=== PATIENT | female | born 1945 | race Caucasian/White ===

== ENCOUNTER → 2017-04-20 | Outpatient (CLI) | payer BC ==
[~2017-04-20] MED LIST: ADVHFA115 INH; ALBU1AER9 INH; ALPHTAB4 PO; AMLO-110 PO; AMT10 PO; CRF1 PO; CRS10 PO; EPP3 IM; GLGKIT IM; MULT-190 PO; NVLGI SC; OMALIZUMAB; PANT40TA PO; POLYSOL4 OPB; PTDOPS OPB; SYN125 PO; VIACTIVE PO; [UNRECOGNIZED DRUG - OTHER] PO
[2017-04-20 13:28] LABS: ESTIMATED AVERAGE GLUCOSE 180 mg/dl; HA1C FLAG Normal (Normal)
[2017-04-20 13:35] LABS: ALT/SGPT 22 U/L (12-78); AST/SGOT 12 U/L (15-37); BLOOD UREA NITROGEN 16 mg/dl (7-18); BUN/CREATININE RATIO 18.2 (10-20); CALCIUM 9.6 mg/dl (8.5-10.1); CARBON DIOXIDE 29 mmol/L (21-32); CHLORIDE 108 mmol/L (98-107); CHOLESTEROL 148 mg/dl (0-200); GLUCOSE 183 mg/dl (70-99); POTASSIUM 3.9 mmol/L (3.5-5.1); SODIUM 143 mmol/L (136-145)
[2017-04-20 13:43] LABS: ALKALINE PHOSPHATASE 130 U/L (45-117); CHOLESTEROL/HDL RATIO 3.1; HDL CHOLESTEROL 48 mg/dl; TRIGLYCERIDES 107 mg/dl (0-150); VERY LOW DENSITY LIPOPROT CALC 21 mg/dl
[2017-04-20 16:11] LABS: CREATININE RANDOM URINE 99.9 mg/dl
[2017-04-20 16:20] LABS: RATIO 28.3 mcg/mg (0-30.0)
--- NOTE | 2017-04-24 11:41 | CODING QUERY MEDICAL NECESSITY ---
SUPPORTING DIAGNOSIS NEEDED A supporting diagnosis is required for the test/procedure performed on this patient in order for us to be reimbursed by the patient's insurance. Please provide a supporting diagnosis for the following test/procedure listed below next to the test name along with your signature. *If there is no additional diagnosis for this patient that would support the following test/procedure please document that below next to the test/procedure. Test(s)/Procedure(s) that require a supporting diagnosis: * VITAMIN D, 25- HYDROXY DIAGNOSIS: Provider Signature: Date: Thank you Ese Bishop [employer] Information Management Once completed, please kindly fax back to [phone] For questions please call [phone]
== END | disposition home or self-care (01) ==
LOC: C.LAB1850 12:00
PROVIDERS: ATTEND Nurse Practitioner Adult Health
DX: E03.9 Hypothyroidism, unspecified (principal); E78.5 Hyperlipidemia, unspecified; E06.3 Autoimmune thyroiditis; I10 Essential (primary) hypertension; E10.649 Type 1 diabetes mellitus with hypoglycemia without coma; E10.49 Type 1 diabetes mellitus with other diabetic neurological complication; J45.909 Unspecified asthma, uncomplicated; M85.80 Other specified disorders of bone density and structure, unspecified site; Z79.4 Long term (current) use of insulin

== ENCOUNTER → 2017-10-02 | Outpatient (CLI) | payer BC ==
--- NOTE | 2017-10-02 11:11 | DIAGNOSTIC IMAGING REPORT ---
BILATERAL UPPER ARM ULTRASOUND CLINICAL HISTORY: LUMPS ON BOTH TRICEPS COMPARISON STUDY: None. FINDINGS: No sonographic abnormality within the left upper arm at the patient's area of interest. Scanning was performed primarily over the region of the triceps. The muscle fibers appear intact. Within the right upper arm there is a 1.1 x 0.4 cm echogenic linear focus within the triceps muscle. Otherwise, no sonographic abnormalities within the right upper arm. No fluid collections are masses. IMPRESSION: 1. A 1.1 x 0.4 cm echogenic linear focus within the right tricep muscle. This is of uncertain clinical significance and could be due to an area of scarring or calcification/ossification. Follow-up right arm radiograph is recommended for further evaluation. 2. no sonographic abnormality within the left upper arm. Electronically signed by: Charlie Lima M.D. 10/02/2017 11:09 AM Dictated Date/Time: 10/02/2017 11:06 AM
== END | disposition home or self-care (01) ==
LOC: C.ULTR 10:12
PROVIDERS: ATTEND Family Medicine
DX: D17.9 Benign lipomatous neoplasm, unspecified (principal)

== ENCOUNTER → 2017-10-16 | Outpatient (CLI) | payer BC ==
[2017-10-16 13:54] LABS: HEMOGLOBIN A1C 7.8 % (4.5-5.6)
== END ==
LOC: C.LABBC 10:28
PROVIDERS: ATTEND Nurse Practitioner Adult Health
DX: E10.649 Type 1 diabetes mellitus with hypoglycemia without coma (principal)

== ENCOUNTER 2018-02-17 10:48 | Emergency (ER) | payer BC ==
[~2018-02-17] VITALS: Ht 167.6 cm; Wt 70.6 kg
[~2018-02-17 10:48] MED LIST changes: -AMLO-110 PO; +AMLO5TAB3 PO
[2018-02-17 10:49] VITALS: TEMP 36.7; Ht 167.6 cm; Wt 70.6 kg
[2018-02-17] MEDS ORDERED: SODIUM CHLORIDE 0.9% 1000ML 2,000 ML IV STA (11:15)
[2018-02-17 11:39] LABS: BASO % 0.4 %; BASO ABS # 0.03 K/uL (0-0.2); EOS % 0.7 %; EOS ABS # 0.05 K/uL (0-0.5); HEMOGLOBIN 14.3 g/dL (12.0-16.0); IG# 0.02 K/uL (0.00-0.02); LYMPH % 16.4 %; LYMPH ABS # 1.11 K/uL (1.2-3.4); MEAN CELL VOLUME 89.9 fL (80-100); MEAN CORPUSCULAR HEMOGLOBIN 30.6 pg (25-34); MEAN PLATELET VOLUME 11.7 fL (7.4-10.4); MONO % 6.5 %; MONO ABS # 0.44 K/uL (0.11-0.59); NEUT % 75.7 %; PLATELET COUNT 171 K/uL (130-400); RED CELL DISTRIBUTION WIDTH CV 12.9 % (11.5-14.5); RED CELL DISTRIBUTION WIDTH SD 41.6 fL (36.4-46.3); WHITE BLOOD COUNT 6.75 K/uL (4.8-10.8)
--- NOTE | 2018-02-17 11:40 | EMERGENCY ROOM VISIT NOTE ---
ED Visit Note First contact with patient: 11:06 CHIEF COMPLAINT: Hyperglycemia HISTORY OF PRESENTING ILLNESS: This is a 72-year-old female with past medical history of type 1 diabetes, hypothyroidism, hyperlipidemia, hypertension, who presents to the emergency department via EMS with concerns for hyperglycemia. The patient is on an insulin pump, her states that she removed it last night around 9 PM and did not have her basal rate going all night. He states that he reattached her insulin pump this morning around 6 AM and gave her a bolus of 9 units of NovoLog insulin to cover her for high blood sugars. He states that she was refusing to let him check her blood glucose level, but the EMS crew did test her prior to bringing her in and her states that her blood sugar was 580 mg/dL. She did have some symptoms of nausea and complaining of her stomach being upset, but he denies any vomiting or diarrhea, he denies any recent fevers or chills or other illness. The reports that the patient has dementia, and he states this has been getting progressively worse over the past several months, and she has removed her pump before in the past. He states that she has been on the insulin pump for 20 years and it has been going reasonably well. REVIEW OF SYSTEMS: A complete 10 point review of systems was reviewed with the patient with pertinent positives and negatives as per history of present illness. All else were negative. PAST MEDICAL HISTORY: Type 1 diabetes on insulin pump, hypothyroidism, hyperlipidemia, hypertension, dementia, GERD. SOCIAL HISTORY: Lives at home with her . She denies tobacco use. ALLERGIES: Reviewed in chart, see below. PHYSICAL EXAM: CONSTITUTIONAL: Pleasant and cooperative. No acute distress. Moderately dehydrated. HEENT: Normocephalic, atraumatic. Pupils equal, round and reactive to light, EOMI. TMs normal. Pharynx normal. Dry cracked lips and dry mucous membranes. NECK: Supple, full active range of motion without discomfort. No cervical adenopathy. RESPIRATORY: Clear to auscultation bilaterally with no wheezing, crackles, rhonchi or stridor. Equal expansion bilaterally. CARDIOVASCULAR: Regular rate and rhythm with no murmurs, rubs or gallops. Normal peripheral perfusion. No edema. GASTROINTESTINAL: Soft, nontender, nondistended. No palpable masses or HSM. Bowel sounds present in all quadrants. MUSCULOSKELETAL: Full range of motion of all joints without discomfort. INTEGUMENTARY: No rash or other significant dermatologic conditions noted. NEUROLOGIC: Alert and oriented to self only (baseline per pt ). Cranial nerves II-XII grossly intact, no facial droop. No pronator drift. No focal neurologic deficits noted. Normal speech. Normal gait observed. ED COURSE AND MEDICAL DECISION MAKING: CC: Patient presenting with complaint of hyperglycemia DIFFERENTIAL DIAGNOSIS: Includes, but not limited to hyperglycemia, pump malfunction, DKA, dehydration, electrolyte abnormality, UTI, pneumonia, among others. INTERPRETATION OF LABS: No leukocytosis, no anemia, normal platelets, hyperglycemia, no other significant electrolyte abnormalities, normal renal function, normal serum ketones slightly elevated. UA shows 3+ glucose and 1+ ketones, no infection. Normal pH on VBG. IMAGING: CHEST ONE VIEW PORTABLE CLINICAL HISTORY: Hyperglycemia to COMPARISON STUDY: Chest radiograph October 14, 2013. FINDINGS: Lung volumes are normal. There is no pneumothorax or pleural effusion. No consolidation is identified. Biapical interstitial thickening, greater on the right, is unchanged. Note is made of mild cardiomegaly without evidence for pulmonary edema. Minimal left basilar opacity favors atelectasis. IMPRESSION: 1. No acute cardiopulmonary findings. 2. No change in biapical opacities, greater on the right. These favor scarring. 3. Minimal left basilar opacity which favors atelectasis. EKG: Shows normal sinus rhythm with rate of 81 bpm, left axis deviation, incomplete right bundle branch block, no acute ST or T-wave changes, no ectopy, left axis deviation appears to be new, no other significant changes when compared to previous EKG from 10/24/2014 by my interpretation. MEDICATION RECONCILIATION: I attest that I have personally reviewed the patient 's current medication list. INITIAL VITAL SIGNS REVIEW: I reviewed the patient's initial vital signs and interpret them as follows: T: Afebrile; BP: Hypertensive; HR: Tachycardic; RR : Within normal limits; Pulse Ox: Within normal limits on room air. Blood pressure screening: The patient was found to have an elevated blood pressure and was referred to their primary doctor for recheck and further treatment. SUMMARY: Patient was evaluated at bedside, history and physical exam performed. Patient is alert, oriented to self and cognitively at her baseline per , no acute distress and resting comfortably in the stretcher. Patient does appear to be moderately dehydrated and is noted to be tachycardic. She is afebrile. Neurologic exam is grossly intact with no focal deficits. She does not have any complaints on exam. Lungs are clear. Abdomen is nontender. EKG reviewed at bedside and does not show any acute ischemic changes. Orders were placed at bedside for labs, VBG, UA, IV fluids for hydration, chest x-ray to evaluate for cardiopulmonary disease. Patient discussed with Dr. Braga, who agrees with my assessment and plan. Labs and imaging reviewed as above, notable for marked hyperglycemia, but she is not acidotic, I do not suspect she has DKA at this time. A 7 unit bolus of regular insulin was ordered to treat for the hyperglycemia. Serial repeats of blood glucose levels showed good improvement in the overall blood glucose level, she is now below 300. Patient reassessed multiple times throughout ED stay, she is remained stable, with no distress, and her tachycardia has resolved after IV fluids. Patient and her were updated on all results and plan for discharge, they were encouraged to follow closely with PCP. Given the patient's declining state secondary to her dementia, I do question how long she will be able to remain in her home with her is her caregiver. This was briefly discussed with the patient's , although he did not seem very open to discussing this at this time. The case investigator did meet with the patient's to provide him with resources for home care and personal group home options. The patient and her were also given strict return precautions should her symptoms worsen, they verbalized understanding. Patient was discharged home in stable condition and ambulatory. Current/Historical Medications Scheduled Amlodipine (Norvasc), 10 MG PO BID Insulin Aspart (novoLOG INSULIN PUMP ), 1 EA N/A UD Pantoprazole (Protonix), 20 MG PO BID Rosuvastatin Calcium (Crestor), 10 MG PO HS Scheduled PRN Albuterol Sulfate (Proair Respiclick), 2 PUFF PO Q4 PRN for SOB/Wheezing Epinephrine (Epipen), 0.3 MG IM UD PRN for Allergic Reaction Fluticasone Prop/Salmeterol (Advair Diskus 100/50 60 Dose), 1 PUFF INH BID PRN for SOB/Wheezing Fluticasone-Salmeterol 115/21 Mcg (Advair Hfa 115/21 Mcg), 2 PUFF INH BID PRN for SOB/Wheezing Glucagon (Glucagon Emergency Kit), 1 DOSE SQ UD PRN for Hypoglycemia Treatment Olopatadine Hydrochloride (Pataday), 1 DROPS OPB DAILY PRN for other Omalizumab (Xolair), 1 DOSE INJ MONTHLY PRN for other Polyethylene Glycol-Propylene (Systane), 1 DROPS OPB QAM PRN for other Allergies Coded Allergies: Aspirin (Verified Allergy, Unknown, ASTHMATIC RESPONSE-SEVERE, 02/17/18) Sulfa Drugs (Verified Allergy, Unknown, HIVES, 02/17/18) Vital Signs Date Time Temp Pulse Resp B/P (MAP) Pulse Ox O2 Delivery O2 Flow Rate FiO2 02/17/18 16:09 62 20 145/89 97 02/17/18 14:30 72 15 96 Room Air 02/17/18 14:00 74 18 02/17/18 13:44 70 16 154/84 96 Room Air 02/17/18 12:42 68 02/17/18 12:35 68 136/79 98 02/17/18 12:31 67 16 136/79 97 Room Air 02/17/18 10:49 36.7 116 18 167/96 95 Room Air Laboratory Results 02/17/18 11:29 Red Blood Count 4.67, Mean Corpuscular Volume 89.9, Mean Corpuscular Hemoglobin 30.6, Mean Corpuscular Hemoglobin Concent 34.0, Mean Platelet Volume 11.7, Neutrophils (%) (Auto) 75.7, Lymphocytes (%) (Auto) 16.4, Monocytes (%) (Auto) 6.5, Eosinophils (%) (Auto) 0.7, Basophils (%) (Auto) 0.4, Neutrophils # (Auto) 5.10, Lymphocytes # (Auto) 1.11, Monocytes # (Auto) 0.44, Eosinophils # (Auto) 0.05, Basophils # (Auto) 0.03 02/17/18 11:29 Test 02/17/18 11:29 02/17/18 12:20 02/17/18 15:43 White Blood Count 6.75 K/uL (4.8-10.8) Red Blood Count 4.67 M/uL (4.2-5.4) Hemoglobin 14.3 g/dL (12.0-16.0) Hematocrit 42.0 % (37-47) Mean Corpuscular Volume 89.9 fL (80-100) Mean Corpuscular Hemoglobin 30.6 pg (25-34) Mean Corpuscular Hemoglobin Concent 34.0 g/dl (32-36) Platelet Count 171 K/uL (130-400) Mean Platelet Volume 11.7 fL (7.4-10.4) Neutrophils (%) (Auto) 75.7 % Lymphocytes (%) (Auto) 16.4 % Monocytes (%) (Auto) 6.5 % Eosinophils (%) (Auto) 0.7 % Basophils (%) (Auto) 0.4 % Neutrophils # (Auto) 5.10 K/uL (1.4-6.5) Lymphocytes # (Auto) 1.11 K/uL (1.2-3.4) Monocytes # (Auto) 0.44 K/uL (0.11-0.59) Eosinophils # (Auto) 0.05 K/uL (0-0.5) Basophils # (Auto) 0.03 K/uL (0-0.2) RDW Standard Deviation 41.6 fL (36.4-46.3) RDW Coefficient of Variation 12.9 % (11.5-14.5) Immature Granulocyte % (Auto) 0.3 % Immature Granulocyte # (Auto) 0.02 K/uL (0.00-0.02) Venous Blood pH 7.38 (7.36-7.41) Venous Blood Partial Pressure CO2 44 mmHg (38.0-50.0) Venous Blood Partial Pressure O2 25 mmHg Venous Blood HCO3 26 mmol/L Venous Blood Oxygen Saturation < 60.0 % Venous Blood Base Excess 0.1 mEq/L Anion Gap 8.0 mmol/L (3-11) Est Creatinine Clear Calc Drug Dose 50.7 ml/min Estimated GFR () 72.0 Estimated GFR (Non- 62.2 BUN/Creatinine Ratio 22.7 (10-20) Calcium Level 9.3 mg/dl (8.5-10.1) Magnesium Level 1.9 mg/dl (1.8-2.4) Total Bilirubin 0.5 mg/dl (0.2-1) Aspartate Amino Transf (AST/SGOT) 10 U/L (15-37) Alanine Aminotransferase (ALT/SGPT) 19 U/L (12-78) Alkaline Phosphatase 111 U/L (45-117) Total Protein 6.7 gm/dl (6.4-8.2) Albumin 3.4 gm/dl (3.4-5.0) Globulin 3.3 gm/dl (2.5-4.0) Albumin/Globulin Ratio 1.0 (0.9-2) Beta-Hydroxybutyric Acid 8.08 mg/dL (0.2-2.81) Urine Color YELLOW Urine Appearance CLEAR (CLEAR) Urine pH 5.0 (4.5-7.5) Urine Specific [place] 1.027 (1.000-1.030) Urine Protein NEG (NEG) Urine Glucose (UA) 3+ (NEG) Urine Ketones 1+ (NEG) Urine Occult Blood TRACE (NEG) Urine Nitrite NEG (NEG) Urine Bilirubin NEG (NEG) Urine Urobilinogen NEG (NEG) Urine Leukocyte Esterase NEG (NEG) Urine WBC (Auto) 1-5 /hpf (0-5) Urine RBC (Auto) 0-4 /hpf (0-4) Urine Hyaline Casts (Auto) 1-5 /lpf (0-5) Urine Epithelial Cells (Auto) 20-30 /lpf (0-5) Urine Bacteria (Auto) NEG (NEG) Bedside Glucose 216 mg/dl (70-90) Medications Administered Medications (Trade) Dose Ordered Sig/Henrry Route Start Time Stop Time Status Last Admin Dose Admin Sodium Chloride 2,000 ml @ 999 mls/hr Q2H1M STAT IV 02/17/18 11:15 02/17/18 13:15 DC 02/17/18 11:30 999 MLS/HR Insulin Human Regular 7 unit/ Syringe 7 ml @ 42 mls/min NOW ONCE IV 02/17/18 13:45 02/17/18 13:46 DC 02/17/18 13:50 42 MLS/MIN Departure Information Impression Primary Impression: Hyperglycemia Additional Impression: Displacement of insulin pump Dispostion Home / Self-Care Condition GOOD Referrals Jorge Pickett M.D. (PCP) Patient Instructions ED Hyperglycemia Diabetic, My [facility] Additional Instructions You have been evaluated and treated in the emergency department today for your elevated blood sugar. Laboratory results and imaging studies have ruled out any emergent causes for your symptoms which would warrant admission to the hospital. Keep the insulin pump in place and continue your normal basal and bolus dosing. Drink plenty of fluids to stay well hydrated. Please follow-up with your Primary Care Provider in the next few days for further evaluation. Return to the emergency department for severe abdominal pain, worsening nausea/ vomiting, vomiting blood, blood in your stool or urine, fevers > 101.5, severe dizziness or passing out, changes in mental status or worsening confusion, falls , or any other concerns. Problem Qualifiers Additional Impression: Displacement of insulin pump Encounter type: initial encounter Qualified Codes: T85.624A - Displacement of insulin pump, initial encounter
--- NOTE | 2018-02-17 11:46 | DIAGNOSTIC IMAGING REPORT ---
CHEST ONE VIEW PORTABLE CLINICAL HISTORY: Hyperglycemia to COMPARISON STUDY: Chest radiograph October 14, 2013. FINDINGS: Lung volumes are normal. There is no pneumothorax or pleural effusion. No consolidation is identified. Biapical interstitial thickening, greater on the right, is unchanged. Note is made of mild cardiomegaly without evidence for pulmonary edema. Minimal left basilar opacity favors atelectasis. IMPRESSION: 1. No acute cardiopulmonary findings. 2. No change in biapical opacities, greater on the right. These favor scarring. 3. Minimal left basilar opacity which favors atelectasis. Electronically signed by: Chilango Burch M.D. 02/17/2018 11:44 AM Dictated Date/Time: 02/17/2018 11:43 AM
[2018-02-17 12:00] LABS: ALBUMIN 3.4 gm/dl (3.4-5.0); CALCIUM 9.3 mg/dl (8.5-10.1); CREATININE 0.91 mg/dl (0.60-1.20); POTASSIUM 4.5 mmol/L (3.5-5.1); TOTAL PROTEIN 6.7 gm/dl (6.4-8.2)
[2018-02-17] MEDS ORDERED: ALBU18002 PO (12:45)
[2018-02-17] MEDS ORDERED: GLGKIT SQ (12:45)
[2018-02-17] MEDS ORDERED: PTDOPS OPB (12:45)
[2018-02-17] MEDS ORDERED: ADVIN10/60 INH (12:45)
[2018-02-17] MEDS ORDERED: INSPMPNVLG SQ (12:45)
[2018-02-17] MEDS ORDERED: FLUT115A INH (12:45)
[2018-02-17] MEDS ORDERED: OMAL150S INJ (12:45)
[2018-02-17] MEDS ORDERED: EPP3/2 IM (12:45)
[2018-02-17] MEDS ORDERED: PRT/20 PO (12:45)
[2018-02-17] MEDS ORDERED: POLYSOL4 OPB (12:45)
[2018-02-17] MEDS ORDERED: CRS/10 PO (12:45)
[2018-02-17] MEDS ORDERED: AMLO10TA3 PO (12:45)
[2018-02-17] MEDS ORDERED: INSULIN HUMAN REGULAR IV STA (13:06)
[2018-02-17] MEDS ORDERED: INSULIN HUMAN REGULAR IV BOLUS 7 UNIT in SYRINGE 0 ML IV ONE (13:45)
--- NOTE | 2018-02-17 14:17 | EMERGENCY ROOM VISIT NOTE ---
ED Visit Note First contact with patient: 11:06 Patient was seen by our PA/RN CARDIAC CATH. I was involved in the patient's care and did evaluate the patient myself. I was involved in the care throughout the ER stay. The patient presents with hyperglycemia. Her insulin pump needle had been displaced last evening. Her sugar is now trending down since treatment. She is not in DKA. As long as things continue to go well, she can be discharged home.
[2018-02-17 16:09] VITALS: BP 145/89; PULSE 62; O2SAT 97
[2018-02-20] MEDS ORDERED: METO50TA16 PO (13:44)
[2018-02-20] MEDS ORDERED: NRV5 PO (13:44)
[2018-02-20] MEDS ORDERED: CRS20 PO (13:44)
[2018-02-20] MEDS ORDERED: SERT1TAB88 PO (13:44)
[2018-02-20] MEDS ORDERED: PLV75 PO (13:44)
== END 2018-02-17 16:07 | disposition home or self-care (01) ==
LOC: EDBD 10:48 → C.EDC 10:50
DX: T85.624A Displacement of insulin pump, initial encounter (principal); X58.XXXA Exposure to other specified factors, initial encounter; E10.65 Type 1 diabetes mellitus with hyperglycemia; Z79.4 Long term (current) use of insulin; E03.9 Hypothyroidism, unspecified; E78.5 Hyperlipidemia, unspecified; I10 Essential (primary) hypertension; K21.9 Gastro-esophageal reflux disease without esophagitis; F03.90 Unspecified dementia, unspecified severity, without behavioral disturbance, psychotic disturbance, mood disturbance, and anxiety; Z79.84 Long term (current) use of oral hypoglycemic drugs; Z79.899 Other long term (current) drug therapy; Z88.6 Allergy status to analgesic agent; Z88.2 Allergy status to sulfonamides

== ENCOUNTER 2018-02-18 23:41 | Inpatient (IN) | payer BC, OTHER ==
[~2018-02-18] VITALS: Ht 167.6 cm; Wt 68.6 kg
[~2018-02-18 23:41] MED LIST changes: -ADVHFA115 INH; +ADVIN10/60 INH; +ALBU18002 PO; -ALBU1AER9 INH; -ALPHTAB4 PO; +AMLO10TA3 PO; -AMLO5TAB3 PO; -AMT10 PO; -CRF1 PO; +CRS/10 PO; -CRS10 PO; -EPP3 IM; +EPP3/2 IM; +FLUT115A INH; -GLGKIT IM; +GLGKIT SQ; +INSPMPNVLG SQ; -MULT-190 PO; -NVLGI SC; +OMAL150S INJ; -OMALIZUMAB; -PANT40TA PO; +PRT/20 PO; -SYN125 PO; -VIACTIVE PO; -[UNRECOGNIZED DRUG - OTHER] PO
[2018-02-18] MEDS ORDERED: SODIUM CHLORIDE 0.9% 1000ML 1,000 ML IV STA (23:56)
[2018-02-18] MEDS ORDERED: LORAZEPAM 1 MG TAB SL STA (23:56)
--- NOTE | 2018-02-18 23:56 | EMERGENCY ROOM VISIT NOTE ---
History Report prepared by Quiana: David Mirza Under the Supervision of: Dr. Dustin Kim M.D. First contact with patient: 23:44 Chief Complaint: ALTERED MENTAL STATUS Stated Complaint: ALTERED MENTAL STATUS History of Present Illness The patient is a 72 year old female who presents to the Emergency Room with a constant altered mental status beginning earlier today. The patient states she does not know where she is, and she does not know what happened. She reports she has pain, but it does not matter. The patient notes she has pain in the LUQ that is not normal. She state pressing on her RUQ makes her symptoms worse, and she currently does not want a work-up. Nursing staff reports the patient is refusing to use her insulin pump. Source of History: patient Onset: earlier today Quality: other (AMS) Timing: constant Modifying Factors (Worsening): other (insulin pump noncompliant) Associated Symptoms: + abdominal pain Review of Systems See HPI for pertinent positives & negatives. A total of 10 systems reviewed and were otherwise negative. Past Medical & Surgical Medical Problems: (1) Elevated troponin I level (2) Hyperglycemia due to type 1 diabetes mellitus Family History Diabetes mellitus Social History Smoking Status: Never Smoker Marital Status: Housing Status: lives with significant other Occupation Status: retired Current/Historical Medications Scheduled Amlodipine Besylate (Amlodipine Besylate), 5 MG PO BID Clopidogrel Bisulfate (Clopidogrel), 75 MG PO QAM Insulin Aspart (novoLOG INSULIN PUMP ), SQ UD Metoprolol Tartrate (Lopressor) (Lopressor), 50 MG PO BID Pantoprazole (Protonix), 20 MG PO BID Rosuvastatin Calcium (Crestor), 20 MG PO HS Sertraline HCl (Sertraline HCl), 12.5 MG PO DAILY Scheduled PRN Albuterol Sulfate (Proair Respiclick), 2 PUFF PO Q4 PRN for SOB/Wheezing Epinephrine (Epipen), 0.3 MG IM UD PRN for Allergic Reaction Fluticasone Prop/Salmeterol (Advair Diskus 100/50 60 Dose), 1 PUFF INH BID PRN for SOB/Wheezing Fluticasone-Salmeterol 115/21 Mcg (Advair Hfa 115/21 Mcg), 2 PUFF INH BID PRN for SOB/Wheezing Glucagon (Glucagon Emergency Kit), 1 DOSE SQ UD PRN for Hypoglycemia Treatment Olopatadine Hydrochloride (Pataday), 1 DROPS OPB DAILY PRN for other Omalizumab (Xolair), 1 DOSE INJ MONTHLY PRN for other Polyethylene Glycol-Propylene (Systane), 1 DROPS OPB QAM PRN for DRYNESS Allergies Coded Allergies: Aspirin (Verified Allergy, Unknown, ASTHMATIC RESPONSE-SEVERE, 02/17/18) Sulfa Drugs (Verified Allergy, Unknown, HIVES, 02/17/18) Physical Exam Vital Signs Date Time Temp Pulse Resp B/P (MAP) Pulse Ox O2 Delivery O2 Flow Rate FiO2 02/19/18 01:10 105 22 172/83 98 Room Air 02/19/18 00:57 98 16 151/114 02/19/18 00:08 Room Air 02/18/18 23:49 36.8 106 21 165/72 98 02/18/18 23:48 105 Physical Exam GENERAL: Awake, alert, well-appearing, in no acute distress. Choosing not to answer questions. HENT: Normocephalic, atraumatic. Oropharynx unremarkable. EYES: Normal conjunctiva. Sclera non-icteric. NECK: Supple. No nuchal rigidity. FROM. No JVD. RESPIRATORY: Clear to auscultation. CARDIAC: Regular rate, normal rhythm. Extremities warm and well perfused. Pulses equal. ABDOMEN: Soft, non-distended. No tenderness to palpation. No rebound or guarding. No masses. RECTAL: Deferred. MUSCULOSKELETAL: Chest examination reveals no tenderness. The back is symmetrical on inspection without obvious abnormality. There is no CVA tenderness to palpation. No joint edema. LOWER EXTREMITIES: Calves are equal size bilaterally and non-tender. No edema. No discoloration. NEURO: Normal sensorium. No sensory or motor deficits noted. SKIN: No rash or jaundice noted. Medical Decision & Procedures ER Provider Diagnostic Interpretation: X-ray results as stated below per interpretation by me: Chest one view: No pneumonia. Some congestion at the lung bases bilaterally. No pneumothorax. Chronic changes present. Radiology results as stated below per my review and [facility] radiologist interpretation: CT HEAD: No acute intracranial process. Involutional changes with small vessel disease. Cataract surgery. Degenerative changes of the tmj's, left greater than right. Radiologist: Reagan Chávez M.D. Study ready at 01:01 and initial results transmitted at 01:03 CT ABDOMEN & PELVIS With Contrast: No radiodense gallstones or pancreatitis. Appendix not identified. No colitis or bowel obstruction. No hydronephrosis. Cardiomegaly. Radiologist: Reagan Chávez M.D. Study ready at 00:58 and initial results transmitted at 01:20 Laboratory Results Test 02/18/18 00:10 02/19/18 00:12 02/19/18 00:39 Total Creatine Kinase 126 U/L (26-192) Creatine Kinase MB 9.6 ng/ml (0.5-3.6) Creatine Kinase MB Ratio 7.6 (0-3.0) Beta-Hydroxybutyric Acid 7.65 mg/dL (0.2-2.81) Thyroid Stimulating Hormone (TSH) 1.020 uIu/ml (0.300-4.500) Ethyl Alcohol mg/dL < 3.0 mg/dl (0-3) Bedside Hemoglobin 12.6 g/dl (12.0-16.0) Bedside Hematocrit 37 % (37-47) Bedside Sodium 142 mEq/L (135-144) Bedside Potassium 4.2 mEq/L (3.3-5.0) Bedside Chloride 105 mEq/L (101-112) Bedside Total CO2 24 mEq/l (24-31) Bedside Blood Urea Nitrogen 12 mg/dl (7-18) Bedside Creatinine 0.7 mg/dl (0.6-1.3) Bedside Glucose (other) 377 mg/dl (70-99) Bedside Ionized Calcium (Ashley) 1.17 mmol/l (1.12-1.32) Labs reviewed by ED physician. Medications Administered Medications (Trade) Dose Ordered Sig/Henrry Route Start Time Stop Time Status Last Admin Dose Admin Sodium Chloride 1,000 ml @ 999 mls/hr Q1H1M STAT IV 02/18/18 23:56 02/19/18 00:56 DC 02/18/18 23:56 999 MLS/HR Lorazepam (Ativan Tab) 1 mg NOW STAT SL 02/18/18 23:56 02/18/18 23:58 DC 02/18/18 23:56 1 MG Insulin Human Regular (novoLIN-R U-100 PER UNIT) 10 units NOW STAT IV 02/19/18 00:21 02/19/18 00:23 DC 02/19/18 01:35 10 UNITS Sodium Chloride 1,000 ml @ 999 mls/hr Q1H1M STAT IV 02/19/18 01:33 02/19/18 02:33 DC 02/19/18 02:41 999 MLS/HR ECG Per My Interpretation Indication: weakness Rate (beats per minute): 99 Rhythm: normal sinus Findings: ST depression (Anterolateral), prolonged QT, other (No ST elevation) Comparison ECG Date: 02/17/2018 Change: no significant change ED Course 2350: Past medical records reviewed. The patient was evaluated in room B12B. A complete history and physical examination was performed. 2356: Ordered Ativan 1mg SL, Sodium Chloride 1000 ml @ 999 mls/hr 0012: EKG and blood work were obtained. The patient is agreeable to the CT. She denies having her finger stuck for POC BSG. 0021: Ordered Insulin Human Regular 10 units IV 0133: Ordered Sodium Chloride 1000 ml @ 999 mls/hr[] 0151: Upon reexamination the patient is resting. I discussed results and treatment plan with the patient. She and her verbalize agreement and understanding. The patient will be evaluated for further management. 0200: I spoke with Dr. Zepeda from the [facility] Hospitalist Service. The patient will be evaluated for further management. Medical Decision Differential diagnosis: Etiologies such as metabolic, infection, hypo/hyperglycemia, electrolyte abnormalities, cardiac sources, intracerebral event, toxicologic, neurologic, as well as others were entertained. This is a 72-year-old female who presents emergency department complaining of altered mental status. The patient arrives during a period of high volume and high acuity. Upon arrival to the emergency department she appears very angry and will not cooperate with examination. Nurses were able to coax the patient into having an IV obtained. Her blood sugar was found to be elevated. She was given a normal saline bolus here in the emergency department. Due to her troponin being elevated I did discuss her case with the hospitalist service who agreed to admit the patient. Family was in agreement with the treatment plan. Medication Reconcilliation Current Medication List: was personally reviewed by me Blood Pressure Screening Patient's blood pressure: Elevated blood pressure Blood pressure disposition: Elevated BP felt to be situational Consults Time Called: 013 Consulting Physician: Dr. Zepeda from the [facility] Hospitalist Service Returned Call: [address] Zepeda from the [facility] Hospitalist Service. The patient will be evaluated for further management. Impression Primary Impression: Altered mental status Additional Impressions: Dehydration Hyperglycemia Scribe Attestation The scribe's documentation has been prepared under my direction and personally reviewed by me in its entirety. I confirm that the note above accurately reflects all work, treatment, procedures, and medical decision making performed by me. Departure Information Dispostion Being Evaluated By Hospitalist Prescriptions Sertraline HCl (Sertraline HCl) 25 Mg Tab 12.5 MG PO DAILY for 30 Days, #15 TABS 3 Refills Prov: Kana Ramirez D.O. 02/20/18 Metoprolol Tartrate (Lopressor) (Lopressor) 50 Mg Tab 50 MG PO BID, #60 TAB 3 Refills Prov: Kana Ramirez D.O. 02/20/18 Rosuvastatin Calcium (Crestor) 20 Mg Tab 20 MG PO HS, #30 TAB 3 Refills Prov: Kana Ramirez D.O. 02/20/18 Amlodipine Besylate (Amlodipine Besylate) 5 Mg Tab 5 MG PO BID, #60 TAB 3 Refills Prov: Kana Ramirez D.O. 02/20/18 Clopidogrel Bisulfate (Clopidogrel) 75 Mg Tab 75 MG PO QAM, #30 TAB 3 Refills Prov: Kana Ramirez D.O. 02/20/18 Referrals Jorge Pickett M.D. (PCP) Patient Instructions My [facility] Health Problem Qualifiers Primary Impression: Altered mental status Altered mental status type: unspecified Qualified Codes: R41.82 - Altered mental status, unspecified
[2018-02-19] MEDS ORDERED: NovoLIN-R INSULIN PER UNIT CHARGE IV STA (00:21)
[2018-02-19] MEDS ORDERED: OPTIRAY 320 IV PRN (00:30)
[2018-02-19 00:56] LABS: ISTAT CREATININE 0.7 mg/dl (0.6-1.3); ISTAT IONIZED CALCIUM 1.17 mmol/l (1.12-1.32); ISTAT POTASSIUM 4.2 mEq/L (3.3-5.0)
[2018-02-19 01:03] LABS: BASO % 0.3 %; BASO ABS # 0.03 K/uL (0-0.2); EOS % 0.8 %; EOS ABS # 0.07 K/uL (0-0.5); HEMATOCRIT 41.6 % (37-47); HEMOGLOBIN 14.2 g/dL (12.0-16.0); IG# 0.01 K/uL (0.00-0.02); LYMPH % 25.8 %; LYMPH ABS # 2.36 K/uL (1.2-3.4); MEAN CELL VOLUME 89.1 fL (80-100); MEAN CORPUSCULAR HEMOGLOBIN 30.4 pg (25-34); MEAN CORPUSCULAR HGB CONC 34.1 g/dl (32-36); MONO % 5.6 %; MONO ABS # 0.51 K/uL (0.11-0.59); NEUT % 67.4 %; NEUT ABS # 6.15 K/uL (1.4-6.5); PLATELET COUNT 175 K/uL (130-400); RED CELL DISTRIBUTION WIDTH CV 12.8 % (11.5-14.5); RED CELL DISTRIBUTION WIDTH SD 41.6 fL (36.4-46.3); WHITE BLOOD COUNT 9.13 K/uL (4.8-10.8)
[2018-02-19 01:32] LABS: ALBUMIN 3.5 gm/dl (3.4-5.0); CALCIUM 9.1 mg/dl (8.5-10.1); CKMB 9.6 ng/ml (0.5-3.6); CREATININE 0.88 mg/dl (0.60-1.20); POTASSIUM 3.7 mmol/L (3.5-5.1); TOTAL PROTEIN 6.8 gm/dl (6.4-8.2)
[2018-02-19] MEDS ORDERED: SODIUM CHLORIDE 0.9% 1000ML 1,000 ML IV STA (01:33)
[2018-02-19] MEDS ORDERED: ACETAMINOPHEN 325 MG TAB PO PRN (03:00)
[2018-02-19] MEDS ORDERED: ALBUTEROL HFA 8 GM INHALER INH PRN (03:00)
[2018-02-19] MEDS ORDERED: FLUTICASONE/SALMETEROL 100/50 (ADVAIR) 14 PUFF/1 INHALER INH PRN (03:00)
[2018-02-19] MEDS ORDERED: CARBOHYDRATES FOR HYPOGLYCEMIA PO PRN (03:15)
[2018-02-19] MEDS ORDERED: GLUCOSE 10 TABS/TUBE PO PRN (03:15)
[2018-02-19] MEDS ORDERED: ONDANSETRON INJ 2 MG/ML 2 ML VIAL IV PRN (03:15)
[2018-02-19] MEDS ORDERED: DEXTROSE 50% 50 ML SYR IV PRN (03:15)
[2018-02-19] MEDS ORDERED: METOPROLOL TARTRATE 1 MG/ML VIAL IV PRN (03:15)
[2018-02-19] MEDS ORDERED: GLUCAGON FOR INJ 1 MG VIAL SQ PRN (03:15)
[2018-02-19] MEDS ORDERED: GLUCOSE 40% GEL 15 GM TUBE PO PRN (03:15)
[2018-02-19] MEDS ORDERED: DiphenhydrAMINE HCL 50 MG/ML VIAL IV PRN ×2 (03:15)
[2018-02-19] MEDS ORDERED: ALBUT/IPRATROP 3MG/0.5MG NEB 3 ML VIAL INH PRN (03:15)
--- NOTE | 2018-02-19 05:25 | History and Physical ---
History & Physical Date & Time of Service: Feb 19, 2018 at 05:14 Chief Complaint: Altered Mental Status Primary Care Physician: Jorge Pickett M.D. History of Present Illness Source: patient, hospital records The patient is unable to contribute to her HPI due to baseline dementia and altered mental state. Her , who is also her take lead investigator, is present and provides her information. He reports that she has been gradually becoming worse with her dementia over the past 5 months, since he returned from [place]. He reports that she has become more and more dependent upon him for routine care. He had taken her to the [employer] today, where they walked around for 4 hours, and she began to develop anxiety because of the number of people there, and this anxiety continued to progress until they got home. When they got home, the patient became more altered, refusing to wear her insulin pump, at which point he called 911 had the patient brought to the emergency department for assessment. Past Medical/Surgical History Medical Problems: (1) Displacement of insulin pump (2) Elevated troponin I level (3) Hyperglycemia (4) Hyperglycemia due to type 1 diabetes mellitus (5) Lumbar disc herniation Family History Diabetes mellitus Social History Smoking Status: Never Smoker Smokeless Tobacco Use: No Alcohol Use: none Drug Use: none Marital Status: Housing status: lives with family Occupational Status: retired Immunizations History of Influenza Vaccine: N/A History of Tetanus Vaccine?: Unknown History of Pneumococcal: Yes History of Hepatitis B Vaccine: Unknown Allergies Coded Allergies: Aspirin (Verified Allergy, Unknown, ASTHMATIC RESPONSE-SEVERE, 02/17/18) Sulfa Drugs (Verified Allergy, Unknown, HIVES, 02/17/18) Home Medications Scheduled Amlodipine (Norvasc), 10 MG PO BID Insulin Aspart (novoLOG INSULIN PUMP ), SQ UD Pantoprazole (Protonix), 20 MG PO BID Rosuvastatin Calcium (Crestor), 10 MG PO HS Scheduled PRN Albuterol Sulfate (Proair Respiclick), 2 PUFF PO Q4 PRN for SOB/Wheezing Epinephrine (Epipen), 0.3 MG IM UD PRN for Allergic Reaction Fluticasone Prop/Salmeterol (Advair Diskus 100/50 60 Dose), 1 PUFF INH BID PRN for SOB/Wheezing Fluticasone-Salmeterol 115/21 Mcg (Advair Hfa 115/21 Mcg), 2 PUFF INH BID PRN for SOB/Wheezing Glucagon (Glucagon Emergency Kit), 1 DOSE SQ UD PRN for Hypoglycemia Treatment Olopatadine Hydrochloride (Pataday), 1 DROPS OPB DAILY PRN for other Omalizumab (Xolair), 1 DOSE INJ MONTHLY PRN for other Polyethylene Glycol-Propylene (Systane), 1 DROPS OPB QAM PRN for DRYNESS Review of Systems The patient is unable to contribute her review of systems due to baseline dementia and altered mental state, and her information is relayed as noted above by her /lead investigator. Physical Exam Vital Signs Date Time Temp Pulse Resp B/P (MAP) Pulse Ox O2 Delivery O2 Flow Rate FiO2 02/19/18 05:01 101 142/79 95 Room Air 02/19/18 04:08 100 18 144/80 94 Room Air 02/19/18 03:04 100 18 133/81 99 Room Air 02/19/18 01:10 105 22 172/83 98 Room Air 02/19/18 00:57 98 16 151/114 02/19/18 00:08 Room Air 02/18/18 23:49 36.8 106 21 165/72 98 02/18/18 23:48 105 The patient is nonresponsive, normocephalic and atraumatic, lying in bed and in no acute distress. HEENT--PERRL, EOMI, mucous membranes and oropharynx dry. Neck--supple. No JVD. No bruits. Thyroid normal, trachea midline, no adenopathy. Heart--normal S1 and S2. No murmurs, rubs or gallops. Lungs--clear bilaterally, no respiratory distress, no accessory muscle use. Abdomen--normal bowel sounds and soft. Nontender. Nondistended, no hernias or masses, no organomegaly. Extremities--no cyanosis or clubbing. No edema. There are good distal pulses b/ l. Dermatologic--normal skin turgor, normal color, no abnormal lymph nodes, no rash. Neurologic--limited exam but nonfocal Rheumatologic--deferred Psychiatric--nonresponsive Diagnostics Laboratory Results Results Past 24 Hours Test 02/18/18 23:56 02/19/18 00:12 02/19/18 00:39 02/19/18 01:23 Range/Units Ethyl Alcohol mg/dL < 3.0 0-3 mg/dl Bedside Hemoglobin 12.6 12.0-16.0 g/dl Bedside Hematocrit 37 37-47 % Bedside Sodium 142 135-144 mEq/L Bedside Potassium 4.2 3.3-5.0 mEq/L Bedside Chloride 105 101-112 mEq/L Bedside Total CO2 24 24-31 mEq/l Anion Gap 18.0 16-25 mmol/L Bedside Blood Urea Nitrogen 12 7-18 mg/dl Bedside Creatinine 0.7 0.6-1.3 mg/dl Bedside Glucose (other) 377 70-99 mg/dl Bedside Ionized Calcium (Ashley) 1.17 1.12-1.32 mmol/l Bedside Glucose 398 70-90 mg/dl Test 02/19/18 02:46 Range/Units Bedside Glucose 338 70-90 mg/dl Impression Assessment and Plan Worsening dementia/altered mental state/encephalopathy/dehydration- CT of the head has shows no acute findings. Patient will likely need MRI of brain and EEG. We will consult her neurologist Dr. Bradley, to let him guide the remainder of her workup and treatment. Place on NSS + KCl 20 mEq at 100 mils per hour. No active signs of infection at this time. Elevated troponin level 0.061-- The patient will be admitted to telemetry for serial cardiac enzymes, serial EKG's, cardiac rhythm monitoring and a 2-D echocardiogram with Dopplers. Likely supply demand mismatch. Continue amlodipine at 5 mg p.o. twice daily, and add metoprolol succinate 25 mg p.o. twice daily. Diabetes mellitus--patient refused to use her own insulin pump. She did get 10 units of regular insulin IV by the ED. Give 18 units Lantus insulin subcu tonight, and readdress use of pump in the a.m. depending on her mental state at that time. Have endocrinology assess her pump to see if it was nonfunctional or dysfunctional. 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 at bedtime. GERD-- Continue pantoprazole at 40 mg p.o. twice daily. Advanced Directives Existing Advance Directive: No Existing Living Will: No Existing Power of Drawing In Machine Tender Helper: No Resuscitation Status VTE Prophylaxis Will order VTE Prophylaxis: Yes
[2018-02-19 05:30] VITALS: BP 163/91; PULSE 109; TEMP 36.5; O2SAT 95; BMI 25.3
[2018-02-19] MEDS ORDERED: NSS + 20MEQ KCL 1000ML 1,000 ML IV SCH (06:00)
[2018-02-19] MEDS ORDERED: INSULIN GLARGINE SOLOSTAR 100 UNITS/ML 3 ML PEN SC SCH (06:00)
[2018-02-19] MEDS: INSULIN ASPART 100 UNITS/ML 3 ML PEN SC SCH ×4 (06:09→21:48)
[2018-02-19] MEDS ORDERED: INSULIN ASPART 100 UNITS/ML 3 ML PEN SC SCH (06:30)
[2018-02-19] MEDS ORDERED: NURSING VERBAL MED ORDER ONE ×2 (07:00→12:15)
[2018-02-19 07:22] VITALS: BP 146/78; PULSE 99; TEMP 36.6; O2SAT 96
--- NOTE | 2018-02-19 07:26 | DIAGNOSTIC IMAGING REPORT ---
SINGLE VIEW CHEST CLINICAL HISTORY: Change in mental status. FINDINGS: An AP, portable, upright chest radiograph is compared to study dated 02/17/2018. The heart is enlarged and there is atherosclerotic calcification of the thoracic aorta. There is prominence of the pulmonary vasculature. Bibasilar atelectasis is noted. There is no large pleural effusion or pneumothorax. Emphysema change is questioned. There is diffuse interstitial thickening. The skeletal structures are osteopenic. The bony thorax is grossly intact. IMPRESSION: 1. Cardiomegaly with prominence of the pulmonary vasculature. Correlate clinically for evidence of mild congestive failure. 2. There is no airspace consolidation typical for pneumonia or large pleural effusion. 3. Question emphysematous change. Electronically signed by: Cory Silva M.D. 02/19/2018 7:24 AM Dictated Date/Time: 02/19/2018 7:22 AM
--- NOTE | 2018-02-19 07:57 | DIAGNOSTIC IMAGING REPORT ---
CT OF THE HEAD WITHOUT CONTRAST CLINICAL HISTORY: Altered mental status. COMPARISON STUDY: No previous studies for comparison. CT DOSE: 537.48 mGy.cm TECHNIQUE: Helical axial images of the head were obtained without IV contrast. Automated exposure control was utilized for the study. A dose lowering technique was utilized adhering to the principles of ALARA. FINDINGS: No acute intracranial hemorrhage, midline shift or mass effect is present. Ventricular system is normal for age. Basilar cisterns are patent. There are no extra-axial collections. Bilateral basal ganglia calcification is noted. White matter hypodensities suggest moderate small vessel disease. There are no findings to suggest acute dural sinus thrombosis or acute territorial infarct. There are no significant calvarial abnormalities. Visualized portions of the sinuses and mastoid air cells are clear. 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 IMPRESSION: No acute intracranial findings. Electronically signed by: Chilango Burch M.D. 02/19/2018 7:56 AM Dictated Date/Time: 02/19/2018 7:53 AM
[2018-02-19 08:00] VITALS: O2SAT 96
[2018-02-19] MEDS: AMLODIPINE BESYLATE 5 MG TAB PO SCH ×2 (08:13→21:44)
[2018-02-19] MEDS: PANTOprazole SOD 40 MG TAB PO SCH ×2 (08:14→21:44)
--- NOTE | 2018-02-19 08:45 | DIAGNOSTIC IMAGING REPORT ---
CT SCAN OF THE ABDOMEN AND PELVIS WITH IV CONTRAST CLINICAL HISTORY: Left upper quadrant abdominal pain. COMPARISON STUDY: Radiographs of the lumbar spine and pelvis dated 07/20/2014. TECHNIQUE: Following the IV administration of 117 cc of Optiray 320, CT scan of the abdomen and pelvis is performed from the lung bases to the proximal femora. Images are reviewed in the axial, sagittal, and coronal planes. IV contrast was administered without complication. A dose lowering technique was utilized adhering to the principles of ALARA. The examination is degraded by motion artifact, as well as by streak artifact from the arms which could not be elevated above the abdomen. CT DOSE: 305.32 mGy.cm FINDINGS: Lung bases: The heart is top normal in size and without pericardial effusion. Evaluation of the lung bases is degraded by motion artifact. The lung bases are grossly clear noting dependent atelectasis. There is a tiny hiatal hernia. Liver: The contrast-enhanced liver is normal in size, contour, and attenuation. There is no intrahepatic biliary ductal dilatation. The hepatic veins and portal veins are patent. Gallbladder: Unremarkable. Spleen: Normal in size and attenuation. Pancreas: Atrophic and grossly unremarkable. Adrenal glands: There is mild nodularity of the adrenal glands. Kidneys: The contrast enhanced kidneys demonstrate cortical atrophy and are without hydronephrosis. The kidneys enhance symmetrically. 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 Abdominal vasculature: The abdominal aorta is normal in course and caliber noting moderate atherosclerotic calcification. Bowel: The small bowel and colon are normal in course and caliber. The appendix is not identified. Peritoneum: There is no intraperitoneal free air or abdominal ascites. There is a fat-containing umbilical hernia. Lymphadenopathy: None. Pelvic viscera: The bladder, uterus, and adnexa are normal as visualized. Skeletal structures: The skeletal structures are osteopenic. Mild lumbosacral spondylosis is observed. Post hemilaminectomy change is noted in the lower lumbar spine. No lytic or blastic lesions are seen. IMPRESSION: 1. Streak and motion degraded examination. 2. There are no acute infectious or inflammatory findings in the abdomen or pelvis. 3. Additional findings as above. Electronically signed by: Cory Silva M.D. 02/19/2018 8:44 AM Dictated Date/Time: 02/19/2018 7:15 AM
[2018-02-19] MEDS ORDERED: METOPROLOL SUCC 25MG EXT REL TAB PO SCH (09:00)
--- NOTE | 2018-02-19 10:46 | Cardiology Consultation ---
Cardiology Consultation Date of Consultation: Feb 19, 2018. Requesting Physician: Dr. Zepeda Reason for Consultation: Chest pain, elevated troponin Pt evaluation today including: conversation w/ patient, conversation w/ family , physical exam, lab review, review of studies, review of inpatient medication list History of Present Illness This is a very pleasant but quite demented 72-year-old woman followed by Dr. Martinez in the office. She has a history of diabetes mellitus, hyperlipidemia, hypertension, GERD, hypothyroidism and asthma. She also has a heart murmur since 2015 due to mild aortic stenosis. She has not had coronary disease identified, she had a stress echo on December 11, 2017 where she reached 82% of her predicted maximal heart rate and had no evidence of ischemia. Her aortic stenosis was not to the point where any further evaluation was indicated. Her history is a little bit hard to take her out because she cannot provide a coherent history due to her dementia. Her however is with her and can provide a good history. They were active range fair yesterday and it was very crowded, the patient began to feel very anxious and upset because she was worried that they would not be able to get out of the parking lot. She evidently was quite anxious. She then held her chest and was complaining of chest pain. They did get to the car, got in the car and even in the car she was still holding her chest. Sometime after that the symptoms resolved. She cannot describe the character of the discomfort due to her dementia. She evidently has not had this before that her is aware of and has not had exertional symptoms like this. He does not recall her ever being like this. She has had some type of chest tightness related to her asthma but that evidently was quite different. She came to the emergency room and was noted to be somewhat hypertensive, and her first troponin was slightly elevated. As far as I know she has had no symptoms since treatment in the emergency room. At the time of my evaluation she was conversational and pleasant, she will answer questions but her answers do not relate necessarily to the question so it can be misleading. Past Medical/Surgical History Diabetes mellitus Hypertension Hypercholesterolemia Asthma Dementia Aortic stenosis Family History Diabetes mellitus Social History Smoking Status: Former Smoker History of Alcohol Use: Yes (wine 4-6 oz daily) Review of Systems Constitutional: No fever, No weight loss, No weakness Respiratory: No cough, No wheezing, No shortness of breath, No dyspnea on exertion Cardiac: + chest pain, No orthopnea, No PND, No edema, No palpitations Abdomen: No pain, No nausea, No vomiting, No diarrhea, No GI bleeding Female : No problem reported Neurologic: No paralysis, No weakness, No numbness/tingling, No balance problems Heme: No abnormal bleeding/bruising, No clotting problems Endo: No fatigue Skin: No problem reported Review of system is probably not complete due to significant dementia All Other Systems: Reviewed and Negative Allergies Coded Allergies: Aspirin (Verified Allergy, Unknown, ASTHMATIC RESPONSE-SEVERE, 02/17/18) Sulfa Drugs (Verified Allergy, Unknown, HIVES, 02/17/18) Medications Current Inpatient Medications Medications (Trade) Dose Ordered Sig/Henrry Route Start Time Stop Time Status Last Admin Dose Admin Ioversol (Optiray 320) 100 ml UD PRN IV 02/19/18 00:30 02/23/18 00:29 Potassium Chloride/Sodium Chloride 1,000 ml @ 100 mls/hr Q10H IV 02/19/18 06:00 03/21/18 02:54 02/19/18 06:07 100 MLS/HR Acetaminophen (Tylenol Tab) 650 mg Q4H PRN PO 02/19/18 03:00 03/21/18 02:59 Amlodipine Besylate (Norvasc Tab) 5 mg BID PO 02/19/18 09:00 03/21/18 08:59 02/19/18 08:13 5 MG Salmeterol Xinafoate/ Fluticasone (Advair Diskus 100/50 Inh) 1 puff BID PRN INH 02/19/18 03:00 03/21/18 02:59 Rosuvastatin Calcium (Crestor Tab) 10 mg HS PO 02/19/18 21:00 03/21/18 20:59 Albuterol (Ventolin Hfa Inhaler) 2 puffs QID PRN INH 02/19/18 03:00 03/21/18 02:59 Pantoprazole Sodium (Protonix Tab) 40 mg BID PO 02/19/18 09:00 03/21/18 08:59 02/19/18 08:14 40 MG Metoprolol Succinate (Toprol Xl Tab) 25 mg BID PO 02/19/18 09:00 03/21/18 08:59 02/19/18 08:14 25 MG Ondansetron HCl (Zofran Inj) 4 mg Q6H PRN IV 02/19/18 03:15 03/21/18 03:14 Insulin Aspart (novoLOG ASPART) SLIDING SCALE If C... ACHS SC 02/19/18 06:30 03/21/18 06:59 02/19/18 06:09 8 UNITS Glucose (Glucose 40% Gel) 15-30 GRAMS 15 GRAMS... UD PRN PO 02/19/18 03:15 03/21/18 03:14 Glucose (Glucose Chew Tab) 4-8 Tablets 4 Tabl... UD PRN PO 02/19/18 03:15 03/21/18 03:14 Dextrose (Dextrose 50% 50ML Syringe) 25-50ML OF 50% DW IV FOR... UD PRN IV 02/19/18 03:15 03/21/18 03:14 Glucagon (Glucagon Inj) 1 mg UD PRN SQ 02/19/18 03:15 03/21/18 03:14 Carbohydrates (Carbohydrates For Hypoglycemia) 15-30 GRAMS 15 grams if BSG 54-69... UD PRN PO 02/19/18 03:15 03/21/18 03:14 Diphenhydramine HCl (Benadryl Inj) 25 mg Q4H PRN IV 02/19/18 03:15 03/21/18 03:14 Diphenhydramine HCl (Benadryl Inj) 50 mg Q6H PRN IV 02/19/18 03:15 03/21/18 03:14 Insulin Glargine (Lantus Solostar Pen) 18 units QAM SC 02/19/18 06:00 03/21/18 05:59 02/19/18 06:09 18 UNITS Metoprolol Tartrate (Lopressor Iv) 5 mg Q4 PRN IV 02/19/18 03:15 03/21/18 03:14 Albuterol/ Ipratropium (Duoneb) 3 ml Q4 PRN INH 02/19/18 03:15 03/21/18 03:14 Physical Exam Vital Signs Past 12 Hours Date Time Temp Pulse Resp B/P (MAP) Pulse Ox O2 Delivery O2 Flow Rate FiO2 8/24/18 07:22 36.6 99 18 146/78 (100) 96 Room Air 02/19/18 05:30 Room Air 02/19/18 05:30 36.5 109 20 163/91 (115) 95 Room Air 02/19/18 05:01 101 142/79 95 Room Air 02/19/18 04:08 100 18 144/80 94 Room Air 02/19/18 03:04 100 18 133/81 99 Room Air 02/19/18 01:10 105 22 172/83 98 Room Air 02/19/18 00:57 98 16 151/114 02/19/18 00:08 Room Air 02/18/18 23:49 36.8 106 21 165/72 98 02/18/18 23:48 105 Constitutional: General Apperance: heathly-appearing Level of Distress: NAD Psychiatric: Mental Status: active & alert Head: normocephalic Eyes: EOM: EOMI ENMT: normal ENT inspection, hearing grossly normal Neck: supple, no masses Lungs: Respiratory effort: no dyspnea, good air movement Auscultation: breath sounds normal, no wheezing Cardiovascular: Heart Auscultation: RRR, no rubs, no gallops, II/ CL Peripheral Pulses: Bruits: none appreciated Abdomen: Bowel Sounds: normal Inspection & Palpation: soft, no tenderness, guarding & rebound, no masses Musculoskeletal: normal strength (5/5 throughout) Extremities: no edema Neurologic: Cranial Nerves: grossly intact Sensation: grossly intact Data Laboratory Results: Last 24 Hours Test 02/19/18 00:12 02/19/18 00:39 02/19/18 01:23 02/19/18 02:46 Ethyl Alcohol mg/dL < 3.0 mg/dl Bedside Hemoglobin 12.6 g/dl Bedside Hematocrit 37 % Bedside Sodium 142 mEq/L Bedside Potassium 4.2 mEq/L Bedside Chloride 105 mEq/L Bedside Total CO2 24 mEq/l Anion Gap 18.0 mmol/L Bedside Blood Urea Nitrogen 12 mg/dl Bedside Creatinine 0.7 mg/dl Bedside Glucose (other) 377 mg/dl Bedside Ionized Calcium (Ashley) 1.17 mmol/l Bedside Glucose 398 mg/dl 338 mg/dl Test 02/19/18 05:41 02/19/18 05:43 02/19/18 07:34 02/19/18 07:35 Bedside Glucose 361 mg/dl 361 mg/dl 396 mg/dl 387 mg/dl Test 02/19/18 08:35 Urine Color YELLOW Urine Appearance CLEAR Urine pH 5.0 Urine Specific [place] 1.029 Urine Protein NEG Urine Glucose (UA) 3+ Urine Ketones 3+ Urine Occult Blood NEG Urine Nitrite NEG Urine Bilirubin NEG Urine Urobilinogen NEG Urine Leukocyte Esterase TRACE Urine WBC (Auto) 10-30 /hpf Urine RBC (Auto) 0-4 /hpf Urine Hyaline Casts (Auto) 1-5 /lpf Urine Epithelial Cells (Auto) >30 /lpf Urine Bacteria (Auto) NEG Urine Opiates Screen NEG Urine Methadone, Qualitative NEG Urine Barbiturates NEG Urine Phencyclidine (PCP) Level NEG Ur Amphetamine/Methamphetamine NEG MDMA (Ecstasy) Screen NEG Urine Benzodiazepines Screen NEG Urine Cocaine Metabolite NEG Urine Marijuana (THC) NEG Imaging: Head CT shows no acute findings, chest x-ray generally unremarkable EKG: Sinus rhythm, incomplete right bundle branch block, nonspecific ST-T abnormalities Telemetry reviewed: Sinus rhythm, no significant arrhythmia Assessment & Plan 1. Chest discomfort: It is very hard to evaluate her chest discomfort as she cannot communicate details regarding the symptoms, her was present but did not question her in the way we would. Apparently the episode was quite significant and he has not been aware of it happening before. She evidently clutched her chest and complained of chest discomfort and the episode lasted for some time, I am not sure exactly when it terminated but apparently after they got to the car she was still having it but sometime later in the emergency room did not seem to. Her troponin has now elevated to 3, consistent with this being an ischemic event. There is no significant wall motion abnormality. I think it probably represents ischemia based on severe emotional, but suggests that there is underlying coronary disease which is not normally clinically apparent. Options are to treat medically versus move on to cardiac catheterization, I think would be reasonable to adjust her medications (unless she has exertional symptoms, although admittedly may be hard to evaluate, it may be best to pursue risk factor modification in any case). If this fails we can move on to cardiac catheterization. 2. Hypertension: Her blood pressure was somewhat elevated in the emergency room but not severely so, probably consistent with anxiety. There is a measurement as high as 172/83. Blood pressure is still elevated today typically in the 140s. We will need to consider adjusting her blood pressure medications, she is only on low-dose amlodipine and metoprolol. I have increased her metoprolol which will help with blood pressure and ischemia if she has it. 3. Hyperlipidemia: She is on low-dose pravastatin and her cholesterol profile last fall was quite good. Cholesterol may not predict response to statins, and it may be prudent to increase her pravastatin, which I have done starting tomorrow morning. Assuming she goes home over the weekend we should plan on seeing her back in the office in 2-4 weeks. Thank you for allowing me to participate in her care.
[2018-02-19 11:18] VITALS: BP 145/84; PULSE 76; TEMP 36.6; O2SAT 95
[2018-02-19] MEDS ORDERED: HALOPERIDOL LACTATE 5 MG/ML 1 ML VIAL ONE (11:44)
[2018-02-19] MEDS ORDERED: LORAZEPAM 2 MG/ML 1 ML VIAL ONE (11:49)
[2018-02-19] MEDS ORDERED: INSULIN GLARGINE SOLOSTAR 100 UNITS/ML 3 ML PEN SC ONE (12:15)
[2018-02-19 14:11] VITALS: Ht 167.6 cm; Wt 68.6 kg
--- NOTE | 2018-02-19 15:43 | Progress Note ---
Subjective Date of Service: Feb 19, 2018. Subjective Pt evaluation today including: conversation w/ patient, conversation w/ family (), physical exam, lab review, review of studies, conversation w/ admissions consultant, review of inpatient medication list Pain: no pain PO Intake: adequate Voiding: no voiding problems patient very agitated and upset in the room, pacing, wanting to go outside required constant redirection and forcefully had to be placed back in her chair required medical sedation with Haldol 5mg IM and Ativan 1mg IV patient eventually calmed down and slept long talk with her , her behavior has been getting worse for a few months he will have a hard time getting her to cooperate with his care will take insulin pump out, not allow him to check her sugars regularly getting very frustrated and tired, 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 Peraza, reviewed that troponin was up to 3, however, normal echo, no WM abnormalities she did have some lateral ST depressions on initial EKG will opt to treat medically, optimize her, no need for stress test at this time if she would continue to have chest pain the consider catheterization discussed consulting psychiatry, agreed Problem List Medical Problems: (1) Altered mental status Status: Acute (2) Dehydration Status: Acute (3) Displacement of insulin pump Status: Acute (4) Hyperglycemia Status: Acute (5) Hyperglycemia Status: Acute Review of Systems Constitutional: + weakness, + fatigue Cardiac: + chest pain (the day prior, none since) Neurologic: + memory loss (with behavior issues) Psychiatric: + anxiety, + insomnia All Other Systems: Reviewed and Negative Medications Current Inpatient Medications Medications (Trade) Dose Ordered Sig/Henrry Route Start Time Stop Time Status Last Admin Dose Admin Ioversol (Optiray 320) 100 ml UD PRN IV 02/19/18 00:30 02/23/18 00:29 Acetaminophen (Tylenol Tab) 650 mg Q4H PRN PO 02/19/18 03:00 03/21/18 02:59 Amlodipine Besylate (Norvasc Tab) 5 mg BID PO 02/19/18 09:00 03/21/18 08:59 02/19/18 08:13 5 MG Salmeterol Xinafoate/ Fluticasone (Advair Diskus 100/50 Inh) 1 puff BID PRN INH 02/19/18 03:00 03/21/18 02:59 Rosuvastatin Calcium (Crestor Tab) 10 mg HS PO 02/19/18 21:00 03/21/18 20:59 Albuterol (Ventolin Hfa Inhaler) 2 puffs QID PRN INH 02/19/18 03:00 03/21/18 02:59 Pantoprazole Sodium (Protonix Tab) 40 mg BID PO 02/19/18 09:00 03/21/18 08:59 02/19/18 08:14 40 MG Metoprolol Succinate (Toprol Xl Tab) 25 mg BID PO 02/19/18 09:00 03/21/18 08:59 02/19/18 08:14 25 MG Ondansetron HCl (Zofran Inj) 4 mg Q6H PRN IV 02/19/18 03:15 03/21/18 03:14 Insulin Aspart (novoLOG ASPART) SLIDING SCALE If C... ACHS SC 02/19/18 06:30 03/21/18 06:59 02/19/18 13:36 7 UNITS Glucose (Glucose 40% Gel) 15-30 GRAMS 15 GRAMS... UD PRN PO 02/19/18 03:15 03/21/18 03:14 Glucose (Glucose Chew Tab) 4-8 Tablets 4 Tabl... UD PRN PO 02/19/18 03:15 03/21/18 03:14 Dextrose (Dextrose 50% 50ML Syringe) 25-50ML OF 50% DW IV FOR... UD PRN IV 02/19/18 03:15 03/21/18 03:14 Glucagon (Glucagon Inj) 1 mg UD PRN SQ 02/19/18 03:15 03/21/18 03:14 Carbohydrates (Carbohydrates For Hypoglycemia) 15-30 GRAMS 15 grams if BSG 54-69... UD PRN PO 02/19/18 03:15 03/21/18 03:14 Diphenhydramine HCl (Benadryl Inj) 25 mg Q4H PRN IV 02/19/18 03:15 03/21/18 03:14 Diphenhydramine HCl (Benadryl Inj) 50 mg Q6H PRN IV 02/19/18 03:15 03/21/18 03:14 Metoprolol Tartrate (Lopressor Iv) 5 mg Q4 PRN IV 02/19/18 03:15 03/21/18 03:14 Albuterol/ Ipratropium (Duoneb) 3 ml Q4 PRN INH 02/19/18 03:15 03/21/18 03:14 Insulin Glargine (Lantus Solostar Pen) 28 units QAM SC 02/20/18 09:00 03/21/18 05:59 Heparin Sodium/ Dextrose 1 ea Q15M N/A 02/19/18 15:35 03/21/18 15:34 Haloperidol Lactate (Haldol Inj) 5 mg Q6 PRN IM 02/19/18 15:45 03/21/18 15:44 UNV Objective Vital Signs Date Time Temp Pulse Resp B/P (MAP) Pulse Ox O2 Delivery O2 Flow Rate FiO2 02/19/18 11:18 36.6 76 18 145/84 (104) 95 Room Air 02/19/18 08:00 96 Room Air 02/19/18 07:22 36.6 99 18 146/78 (100) 96 Room Air 02/19/18 05:30 Room Air 02/19/18 05:30 36.5 109 20 163/91 (115) 95 Room Air 02/19/18 05:01 101 142/79 95 Room Air 02/19/18 04:08 100 18 144/80 94 Room Air 02/19/18 03:04 100 18 133/81 99 Room Air 02/19/18 01:10 105 22 172/83 98 Room Air 02/19/18 00:57 98 16 151/114 02/19/18 00:08 Room Air 02/18/18 23:49 36.8 106 21 165/72 98 02/18/18 23:48 105 Physical Exam General Appearance: WD/WN, + moderate distress (agitated, pushing at me and staff, needed restrained) Eyes: normal inspection, EOMI, sclerae normal ENT: normal ENT inspection, hearing grossly normal, pharynx normal Neck: supple, no adenopathy, no JVD, trachea midline Respiratory/Chest: chest non-tender, lungs clear, normal breath sounds, no respiratory distress, no accessory muscle use Cardiovascular: regular rate, rhythm, no edema, no gallop, no JVD, no murmur Abdomen: normal bowel sounds, non tender, soft, no organomegaly Extremities: normal range of motion, non-tender, normal inspection, no pedal edema, no calf tenderness, pelvis stable 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, no motor/sensory deficits, alert, normal mood/affect, + disoriented (knows person, not place or time, confused about recent events) Skin: normal color, warm/dry, no rash Laboratory Results Last 24 Hours Test 02/19/18 00:12 02/19/18 00:39 02/19/18 01:23 02/19/18 02:46 Ethyl Alcohol mg/dL < 3.0 mg/dl Bedside Hemoglobin 12.6 g/dl Bedside Hematocrit 37 % Bedside Sodium 142 mEq/L Bedside Potassium 4.2 mEq/L Bedside Chloride 105 mEq/L Bedside Total CO2 24 mEq/l Anion Gap 18.0 mmol/L Bedside Blood Urea Nitrogen 12 mg/dl Bedside Creatinine 0.7 mg/dl Bedside Glucose (other) 377 mg/dl Bedside Ionized Calcium (Ashley) 1.17 mmol/l Bedside Glucose 398 mg/dl 338 mg/dl Test 02/19/18 05:41 02/19/18 05:43 02/19/18 07:34 02/19/18 07:35 Bedside Glucose 361 mg/dl 361 mg/dl 396 mg/dl 387 mg/dl Test 02/19/18 08:35 02/19/18 14:18 Urine Color YELLOW Urine Appearance CLEAR Urine pH 5.0 Urine Specific [place] 1.029 Urine Protein NEG Urine Glucose (UA) 3+ Urine Ketones 3+ Urine Occult Blood NEG Urine Nitrite NEG Urine Bilirubin NEG Urine Urobilinogen NEG Urine Leukocyte Esterase TRACE Urine WBC (Auto) 10-30 /hpf Urine RBC (Auto) 0-4 /hpf Urine Hyaline Casts (Auto) 1-5 /lpf Urine Epithelial Cells (Auto) >30 /lpf Urine Bacteria (Auto) NEG Urine Opiates Screen NEG Urine Methadone, Qualitative NEG Urine Barbiturates NEG Urine Phencyclidine (PCP) Level NEG Ur Amphetamine/Methamphetamine NEG MDMA (Ecstasy) Screen NEG Urine Benzodiazepines Screen NEG Urine Cocaine Metabolite NEG Urine Marijuana (THC) NEG Troponin I 3.130 ng/ml Assessment and Plan 72 yo female with history of early onset dementia with anxiety, presented with chest pain, hyperglycemia and severe anxiety and stress - NSTEMI: troponin bumped to 3.1 and was then 3.2 later in the day heparin drip started and Plavix after discussion with cardiology Crestor increased from 10mg to 20mg metoprolol started at 25mg, titrated up to 50mg due to elevated blood pressures aspirin could not be used due to severe aspirin allergy patient without any further chest pain on 02/19 but was not a very reliable historian, not answering questions certainly was not clutching at her chest long talk with Dr Peraza, he reviewed echo, normal findings he recommended conservative care for time being, no initial plans for [facility] - Worsening dementia with anxiety and behavioral disturbances required physical restraining and the Haldol 5mg and Ativan 1mg IV patient was able to rest so that echo could be performed, wanted to decreased stress on heart since she had NSTEMI per , memory and behavior getting slowly worse for 5 months good days and bad days very prone to anxiety, gets anxious if not there he was sick with cholecystitis a few months ago and she was escaping from their house because he wasn't there will consult psychiatry for medication recommendations, agrees with plan Hyperglycemia, DM type I on pump sugars elevated because pump came off and patient would not allow to replace reviewed pump setting, uses 28 units throughout day as basal rate provided with Lantus 18 units in the morning and then when sugars still elevated, gave additional 8 units Novolog SS for meal coverage plan to place pump prior to discharge 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 at bedtime. GERD-- Continue pantoprazole at 40 mg p.o. twice daily. note that patient was admitted after midnight, however, I spent 65 minutes with patient, 35 minutes in direct care and 30 minutes talking with , talking with Dr. Peraza and psychiatry time in was 1125am and time out of the room was 1200pm and then spent 30 additional minutes talking with and specialists throughout day
[2018-02-19] MEDS ORDERED: HALOPERIDOL LACTATE 5 MG/ML 1 ML VIAL IM PRN (15:45)
[2018-02-19] MEDS ORDERED: HEPARIN 25,000 UNIT/500ML D5W 500 ML IV SCH (16:00)
[2018-02-19] MEDS ORDERED: CLOPIDOGREL BISULFATE 75 MG TAB PO ONE (16:15)
[2018-02-19] MEDS ORDERED: ASPIRIN 81 MG ECTAB PO ONE (16:15)
[2018-02-19 16:33] LABS: BASO % 0.4 %; BASO ABS # 0.03 K/uL (0-0.2); EOS % 0.7 %; EOS ABS # 0.05 K/uL (0-0.5); HEMATOCRIT 38.5 % (37-47); HEMOGLOBIN 13.1 g/dL (12.0-16.0); IG# 0.02 K/uL (0.00-0.02); LYMPH % 17.5 %; LYMPH ABS # 1.29 K/uL (1.2-3.4); MEAN CELL VOLUME 89.7 fL (80-100); MEAN CORPUSCULAR HEMOGLOBIN 30.5 pg (25-34); MEAN PLATELET VOLUME 11.7 fL (7.4-10.4); MONO % 8.7 %; MONO ABS # 0.64 K/uL (0.11-0.59); NEUT % 72.4 %; NEUT ABS # 5.35 K/uL (1.4-6.5); PLATELET COUNT 174 K/uL (130-400); RED CELL DISTRIBUTION WIDTH CV 12.9 % (11.5-14.5); WHITE BLOOD COUNT 7.38 K/uL (4.8-10.8)
[2018-02-19 16:41] LABS: PTT PATIENT 23.8 SECONDS (21.0-31.0)
--- NOTE | 2018-02-19 17:56 | ECHOCARDIOGRAM REPORT ---
*NOTICE TO RECEIVING [employer] This information is strictly Confidential and protected under [place] law. [place] law prohibits you from making any further disclosure of this information unless further disclosure is expressly permitted by the written consent of the person to whom it pertains or is authorized by law. A general authorization for the release of medical or other information is not sufficient for this purpose. Hospital accepts no responsibility if the information is made available to any other person, INCLUDING THE PATIENT. Interpretation Summary * Name: KARLY RAMIREZ Study Date: 02/19/2018 03:19 PM BP: 145/84 mmHg * Patient Location: [facility] HR: 73 * : 1945 (M/d/yyyy) Gender: Female Height: 66 in * Age: 72 yrs Ethnicity: CA Weight: 156 lb * Performed By: Johnna Centeno RDCS * * Reason For Study: SUBENDOCARDIAL IN * BSA: 1.8 m2 * -- Conclusions -- * 1. Normal LV size, mild concentric LVH. * 2. LVEF 60-65%. No regional wall motion abnormalities. * 3. Normal RV size and function. * 4. Mild aortic stenosis. * 5. No prior studies for comparison. Procedure Details * A contrast injection of Definity was performed to improve assessment of LV function. * Contrast was injected into an intravenous site in the right arm. * One vial of Definity ultrasound contrast was diluted in normal saline to a total volume of 10 ml. A total of '2' ml of solution was administered during imaging. * Lot # [id number] of Definity utilized for procedure. * Expiration date 1 JAN 14. * The attending nurse who injected the contrast agent was MILLI CHAN RN. Left Ventricle * The left ventricle is grossly normal size. * There is mild concentric left ventricular hypertrophy. * Ejection Fraction = 60-65%. * No regional wall motion abnormalities noted. Right Ventricle * The right ventricle is grossly normal size. * The right ventricular systolic function is normal as assessed by tricuspid annular plane systolic excursion (TAPSE) (normal >1.5 cm). Atria * The left atrial size is normal. * Right atrial size is normal. * No ASD detected; PFO is not assessed. Mitral Valve * The mitral valve is grossly normal. * There is no mitral valve stenosis. * Significant mitral regurgitation is absent. Tricuspid Valve * There is mild tricuspid regurgitation. Aortic Valve * The aortic valve is trileaflet. * Mild valvular aortic stenosis. * There is no significant aortic regurgitation. Pulmonic Valve * The pulmonary valve is inadequately visualized, but the Doppler data is adequate for interpretation. * There is no pulmonic valvular stenosis. * Trace pulmonic valvular regurgitation. Great Vessels * The aortic root and proximal ascending aorta are normal sized. Pericardium/Pleural * Trivial pericardial effusion. MMode 2D Measurements and Calculations IVSd 1.5 cm IVSs 1.8 cm LVIDd 3.9 cm LVIDs 2.6 cm LVPWd 1.3 cm LVPWs 1.8 cm IVS/LVPW 1.1 FS 34.3 % EDV(Teich) 67.3 ml ESV(Teich) 24.2 ml EF(Teich) 64.0 % EDV(cubed) 60.9 ml ESV(cubed) 17.3 ml EF(cubed) 71.7 % % IVS thick 21.9 % % LVPW thick 33.3 % LV mass(C)d 207.1 grams LV mass(C)dI 115.1 grams/m\S\2 LV mass(C)s 183.0 grams LV mass(C)sI 101.7 grams/m\S\2 SV(Teich) 43.1 ml SI(Teich) 23.9 ml/m\S\2 SV(cubed) 43.6 ml SI(cubed) 24.2 ml/m\S\2 Ao root diam 3.0 cm Ao root area 7.0 cm\S\2 LA dimension 4.1 cm LA/Ao 1.4 LVAd ap4 24.3 cm\S\2 LVLd ap4 7.6 cm EDV(MOD-sp4) 65.7 ml EDV(sp4-el) 65.5 ml LVAs ap4 13.2 cm\S\2 LVLs ap4 6.4 cm ESV(MOD-sp4) 24.1 ml ESV(sp4-el) 23.2 ml EF(MOD-sp4) 63.3 % EF(sp4-el) 64.6 % LVAd ap2 19.9 cm\S\2 LVLd ap2 7.8 cm EDV(MOD-sp2) 44.6 ml EDV(sp2-el) 43.4 ml LVAs ap2 11.0 cm\S\2 LVLs ap2 6.2 cm ESV(MOD-sp2) 18.0 ml ESV(sp2-el) 16.6 ml EF(MOD-sp2) 59.6 % EF(sp2-el) 61.8 % LVLd %diff 1.8 % EDV(MOD-bp) 54.1 ml LVLs %diff -3.40 % ESV(MOD-bp) 21.0 ml EF(MOD-bp) 61.2 % SV(MOD-sp4) 41.6 ml SI(MOD-sp4) 23.1 ml/m\S\2 SV(MOD-sp2) 26.5 ml SI(MOD-sp2) 14.7 ml/m\S\2 SV(MOD-bp) 33.1 ml SI(MOD-bp) 18.4 ml/m\S\2 SV(sp4-el) 42.3 ml SI(sp4-el) 23.5 ml/m\S\2 SV(sp2-el) 26.8 ml SI(sp2-el) 14.9 ml/m\S\2 Doppler Measurements and Calculations MV E max iza 72.3 cm/sec MV A max iza 83.6 cm/sec MV E/A 0.86 MV dec time 0.29 sec Ao V2 max 232.2 cm/sec Ao max PG 21.6 mmHg Ao max PG (full) 17.6 mmHg Ao V2 mean 167.6 cm/sec Ao mean PG 12.3 mmHg Ao mean PG (full) 10.6 mmHg Ao V2 VTI 56.6 cm LV V1 max PG 3.9 mmHg LV V1 mean PG 1.7 mmHg LV V1 max 99.2 cm/sec LV V1 mean 59.8 cm/sec LV V1 VTI 22.7 cm SV(Ao) 398.7 ml SI(Ao) 221.5 ml/m\S\2 TR max iza 237.3 cm/sec
--- NOTE | 2018-02-19 18:58 | NEUROLOGY CONSULTATION ---
DATE OF CONSULTATION: 02/19/2018 REASON FOR CONSULTATION: Dementia. HISTORY OF PRESENT ILLNESS: Mrs. Baig is a 72-year-old unknown handedness female with a history of dementia. According to her , she is not currently followed by neurology. Her indicates she has moderately severe dementia and symptoms have been worse over the last 5 months. She is more dependent on for routine care. She becomes extremely anxious at times and then becomes agitated. They were at the [facility] today, on the day of admission, and walked for hours. When they went to get ready to leave, the patient was concerned about the crowd anxious, agitated. They continued to walk to the car. She had some chest pressure and pain. When they arrived home, she took off her insulin pump and when her could not reason with her or get the pump reestablished or a blood sugar reading, he called 911. He did not notice any focal neurologic findings such as dysarthria, facial droop, unilateral weakness or numbness. In terms of her cognitive dysfunction, he has been generally able to redirect her when she becomes agitated. She is very resistant to taking medications and the only thing he gets her to take reliably is her Synthroid and she takes insulin via pump. On admission to the Emergency Room, her blood sugar was 359 and troponins positive. Troponin has continued to climb. Her lab work was otherwise unremarkable. Urinalysis was notable for trace leukocyte esterase, 10-30 white cells. Urine bacteria negative and toxicology was negative. None of her medications were recently changed in dose. A CT of the head noncontrast showed bilateral basal ganglia calcification in the past. MEDICAL HISTORY: As above. Diabetic neuropathy, lumbar disk herniation. FAMILY HISTORY: Diabetes. SOCIAL HISTORY: Nonsmoker. Lives with her . ALLERGIES: ASPIRIN AND SULFA. HOME MEDICATIONS: Norvasc, NovoLog, Protonix, Crestor, and a thyroid replacement, p.r.n. albuterol, Advair, Pataday, Xolair, Systane eye drops. REVIEW OF SYSTEMS: Unable to be performed. I did not wake the patient as she had been agitated and had just settled down having received some p.r.n. medication. IMPRESSION: This patient has at least a moderately severe dementia and has had episodes of agitation. I do not think any increase in agitation or confusion suggest a new central event and suspect this may have been a combination of hyperglycemia as well as new cardiac event. I defer to primary care as to whether or not to try her on an SSRI. If there were no cardiac contraindications, a low dose of Zoloft may be helpful with her anxiety and then agitation as well. The patient may want to see neurology as an outpatient. My understanding from her is that she saw Dr. Bradley and myself remotely for neuropathy but not cognitive dysfunction. Will sign off. Her may want her to see neurology in follow-up. ELOY
[2018-02-19 19:47] VITALS: BP 163/90; PULSE 77; TEMP 36.9; O2SAT 92
[2018-02-19] MEDS ORDERED: ROSUVASTATIN CALCIUM 20 MG TAB PO SCH (21:00)
[2018-02-19] MEDS ORDERED: ROSUVASTATIN CALCIUM 10 MG TAB PO SCH (21:00)
[2018-02-19] MEDS: METOPROLOL TARTRATE 50 MG TAB PO SCH (21:59)
[2018-02-19 22:50] LABS: PTT PATIENT 52.3 SECONDS (21.0-31.0)
[2018-02-19 23:41] VITALS: BP 144/69; PULSE 62; TEMP 37.2; O2SAT 94
[2018-02-20 04:00] VITALS: BP 138/81; PULSE 63; TEMP 36.9; O2SAT 93
[2018-02-20 07:04] LABS: BASO % 0.7 %; BASO ABS # 0.04 K/uL (0-0.2); EOS % 1.6 %; HEMATOCRIT 41.1 % (37-47); HEMOGLOBIN 13.7 g/dL (12.0-16.0); IG# 0.01 K/uL (0.00-0.02); LYMPH % 30.2 %; LYMPH ABS # 1.85 K/uL (1.2-3.4); MEAN CORPUSCULAR HEMOGLOBIN 29.7 pg (25-34); MEAN CORPUSCULAR HGB CONC 33.3 g/dl (32-36); MONO % 6.5 %; NEUT % 60.8 %; NEUT ABS # 3.72 K/uL (1.4-6.5); PLATELET COUNT 177 K/uL (130-400); RED CELL DISTRIBUTION WIDTH CV 12.9 % (11.5-14.5); WHITE BLOOD COUNT 6.12 K/uL (4.8-10.8)
[2018-02-20 07:39] LABS: CALCIUM 9.1 mg/dl (8.5-10.1); CREATININE 0.78 mg/dl (0.60-1.20); POTASSIUM 3.5 mmol/L (3.5-5.1)
[2018-02-20 07:41] VITALS: BP 138/82; PULSE 64; TEMP 36.7; O2SAT 93
[2018-02-20 07:42] LABS: TOTAL PROTEIN 6.3 gm/dl (6.4-8.2)
[2018-02-20 07:58] LABS: PTT PATIENT 86.7 SECONDS (21.0-31.0)
[2018-02-20] MEDS: METOPROLOL TARTRATE 50 MG TAB PO SCH (08:07)
[2018-02-20] MEDS: AMLODIPINE BESYLATE 5 MG TAB PO SCH (08:07)
[2018-02-20] MEDS: PANTOprazole SOD 40 MG TAB PO SCH (08:07)
[2018-02-20] MEDS: INSULIN ASPART 100 UNITS/ML 3 ML PEN SC SCH ×2 (08:12→12:11)
[2018-02-20] MEDS ORDERED: INSULIN GLARGINE SOLOSTAR 100 UNITS/ML 3 ML PEN SC SCH (09:00)
[2018-02-20] MEDS ORDERED: CLOPIDOGREL BISULFATE 75 MG TAB PO SCH (09:00)
[2018-02-20 11:21] VITALS: BP 155/69; PULSE 63; TEMP 37; O2SAT 94
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
[2018-02-20] MEDS ORDERED: SERTRALINE HCL 50 MG TAB PO SCH (13:00)
[2018-02-20] MEDS ORDERED: SERT1TAB88 PO (13:44)
[2018-02-20] MEDS ORDERED: METO50TA16 PO (13:44)
[2018-02-20] MEDS ORDERED: PLV75 PO (13:44)
[2018-02-20] MEDS ORDERED: NRV5 PO (13:44)
[2018-02-20] MEDS ORDERED: CRS20 PO (13:44)
--- NOTE | 2018-02-20 13:52 | Discharge Instructions ---
Discharge Instructions Date of Service Feb 20, 2018. Admission Reason for Admission: Elevated Troponin I Level,Hyperglycemia Due To Discharge Discharge Diagnosis / Problem: NSTEMI (small heart attack), hyperglycemia, dementia with anxiety Discharge Goals Goal(s): Improve function, Improve disease control Activity Recommendations Activity Limitations: per Instructions/Follow-up section Lifting Limitations: none Exercise/Sports Limitations: gradually increase as tolerated May Resume Sexual Activity: after one week Shower/Bathe: no limitations Driving or Machine Use: no driving . Instructions / Follow-Up Instructions / Follow-Up Medications: several changes made - PLAVIX: 75mg daily, antiplatelet medication to protect against heart attack - CRESTOR: dose increased to 20mg from 10mg for better protection against heart attack - LOPRESSOR: 50mg twice a day, started for the heart - NORVASC: dose decreased to 5mg twice a day since Lopressor added - ZOLOFT: 12.5mg daily, started by psychiatry, would continue for 1-2 weeks and possibly titrate up - INSULIN PUMP: received Lantus 28 units this morning so would not start basal insulin until tomorrow morning, continue to give bolus dosing with meals NSTEMI (non-ST elevated myocardial infarction) diagnosed with chest pain, mild EKG changes and elevation of troponin to 3 no significant changes seen on echocardiogram treatment included heparin drip while hospitalized, started on Plavix, Crestor increased to 20mg, Lopressor 50mg twice a day added you should follow up with [facility] cardiology, Andrea Shahid PA-C in 2-3 weeks Dementia with anxiety Dr. Johnson recommends starting low dose Zoloft 12.5mg daily, would continue this dose for 1-2 weeks if tolerating well, primary care doctor can increase to 25mg Diabetes on insulin pump, hyperglycemia due to pump being disconnected continue prior settings, follow closely with endocrinology FOLLOW UP - Dr. Pickett this week, call for appointment - Andrea Shahid PA-C with cardiology, call for appointment in 2-3 weeks, [phone] Current Hospital Diet Patient's current hospital diet: AHA Diet (Heart Healthy), Diabetes Type 1 Diet Discharge Diet Recommended Diet: AHA Diet (Heart Healthy), Diabetes Type 1 Diet Pending Studies Studies pending at discharge: no Medical Emergencies . Who to Call and When: Medical Emergencies: If at any time you feel your situation is an emergency, please call 911 immediately. . Non-Emergent Contact Non-Emergency issues call your: Primary Care Provider, [facility] Call Non-Emergent contact if: you have any medication questions . . "Provider Documentation" section prepared by Kaan Ramirez. . [place] Drug Monitoring Program Search Results: no issues identified
[2018-02-20 14:04] VITALS: BP 155/69; PULSE 63; TEMP 37; O2SAT 94
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
== END 2018-02-20 14:40 | disposition home or self-care (01) | DRG 637 ==
LOC: EDBD 23:41 → C.EDB 23:41 → C.MED 02-19 02:55 → ENRESERV 02-19 04:13 → C.MED 02-19 18:21
PROVIDERS: ADMIT Hospitalist; ATTEND Internal Medicine
DX: E10.65 Type 1 diabetes mellitus with hyperglycemia (principal); I21.4 Non-ST elevation (NSTEMI) myocardial infarction; F03.91 Unspecified dementia, unspecified severity, with behavioral disturbance; F41.9 Anxiety disorder, unspecified; E86.0 Dehydration; Z78.1 Physical restraint status; I10 Essential (primary) hypertension; E78.5 Hyperlipidemia, unspecified; H54.7 Unspecified visual loss; K21.9 Gastro-esophageal reflux disease without esophagitis; J45.909 Unspecified asthma, uncomplicated; E03.9 Hypothyroidism, unspecified; Z96.41 Presence of insulin pump (external) (internal); Z79.899 Other long term (current) drug therapy; Z87.891 Personal history of nicotine dependence; Z88.6 Allergy status to analgesic agent; Z88.2 Allergy status to sulfonamides; Z83.3 Family history of diabetes mellitus